=== PATIENT | female | born 1985 | race Caucasian/White ===

== ENCOUNTER 2024-02-06 20:52 | Emergency (ER) | payer OTHER, BC, MEDICAID ==
[~2024-02-06] VITALS: Ht 157.5 cm; Wt 60.3 kg
[2024-02-06 21:05] VITALS: BP_SYST 125; PULSE 80; RESP 18; TEMP 97.9; O2SAT 99
[2024-02-06] MEDS ORDERED: NAPR-1172 PO (23:07)
[2024-02-06 23:17] VITALS: BP_SYST 125; PULSE 80; RESP 18; TEMP 97.9; O2SAT 99
== END 2024-02-06 23:17 | disposition home or self-care (01) ==
LOC: SED 20:52
DX: S13.4XXA Sprain of ligaments of cervical spine, initial encounter (principal); S43.402A Unspecified sprain of left shoulder joint, initial encounter; Z85.3 Personal history of malignant neoplasm of breast; Z98.890 Other specified postprocedural states; Z79.899 Other long term (current) drug therapy; V89.2XXA Person injured in unspecified motor-vehicle accident, traffic, initial encounter; Y93.89 Activity, other specified; Y92.89 Other specified places as the place of occurrence of the external cause; Y99.8 Other external cause status
CPT/HCPCS: 72040; 73030; 99284